=== PATIENT | male | born 1990 | race Caucasian/White ===

== ENCOUNTER 2022-09-05 19:47 | Emergency (ER) | payer MEDICAID ==
[~2022-09-05] VITALS: Ht 182.9 cm; Wt 78.0 kg
[2022-09-05 20:00] VITALS: BP 105/66; PULSE 100; RESP 16; TEMP 98; O2SAT 100
[2022-09-05] MEDS ORDERED: HYDROCODONE/ACETAMINOPHEN 5/325MG TABLET PO ONE (21:45)
[2022-09-05] MEDS ORDERED: AMOX-494 MT (21:47)
[2022-09-05] MEDS ORDERED: HYDR-4001 MT (21:47)
[2022-09-05] MEDS ORDERED: IBUP-2029 MT (21:47)
== END 2022-09-05 22:57 | disposition home or self-care (01) ==
LOC: ER 20:40
DX: H92.02 Otalgia, left ear (principal)
CPT/HCPCS: 99281; 99283

== ENCOUNTER 2023-03-15 11:28 | Emergency (ER) | payer MEDICAID ==
[~2023-03-15] VITALS: Ht 172.7 cm; Wt 74.0 kg
[~2023-03-15 11:28] MED LIST: AMOX-494 MT; HYDR-4001 MT; IBUP-2029 MT
[2023-03-15 11:33] VITALS: TEMP 99.8; O2SAT 98
[2023-03-15] MEDS ORDERED: KETOROLAC 60MG/2ML VIAL IM ONE (11:45)
[2023-03-15] MEDS ORDERED: AMOX1TAB16 MT (11:50)
[2023-03-15 12:35] VITALS: BP 110/75; PULSE 98; RESP 16
== END 2023-03-15 12:47 | disposition home or self-care (01) ==
LOC: ER 11:42
DX: K04.7 Periapical abscess without sinus (principal)
CPT/HCPCS: 99283; 96372; J1885